=== PATIENT | female | born 1985 | race Caucasian/White ===

== ENCOUNTER → 2016-11-08 | Outpatient (CLI) | payer OTHER ==
[~2016-11-08] MED LIST: LIDOCAINE 1%, 20ML ONE; SODIUM BICARBONATE 4.2%, 5ML ONE
== END | disposition home or self-care (01) ==
LOC: RAD 13:01
PROVIDERS: ATTEND Internal Medicine
DX: R59.1 Generalized enlarged lymph nodes (principal); R51 Headache
CPT/HCPCS: 76536; 76942; 88173; J3490

== ENCOUNTER → 2017-02-06 | Outpatient (CLI) | payer OTHER | END | disposition home or self-care (01) | LOC: LAB 10:04 | PROVIDERS: ATTEND Internal Medicine | DX: Z13.220 Encounter for screening for lipoid disorders (principal); Z12.11 Encounter for screening for malignant neoplasm of colon; Z12.4 Encounter for screening for malignant neoplasm of cervix; Z12.39 Encounter for other screening for malignant neoplasm of breast; R61 Generalized hyperhidrosis; R59.1 Generalized enlarged lymph nodes | CPT/HCPCS: 36415; 83516 ==

== ENCOUNTER → 2017-04-16 | Outpatient (CLI) | payer OTHER | END | disposition home or self-care (01) | LOC: CFH 13:05 | PROVIDERS: ATTEND Internal Medicine Rheumatology | DX: M25.542 Pain in joints of left hand (principal); M25.541 Pain in joints of right hand | CPT/HCPCS: 77077 ==

== ENCOUNTER → 2017-05-08 | Outpatient (CLI) | payer OTHER | END | disposition home or self-care (01) | LOC: CFH 10:11 | PROVIDERS: ATTEND Orthopaedic Surgery | DX: M25.552 Pain in left hip (principal) | CPT/HCPCS: 73523 ==

== ENCOUNTER → 2017-05-14 | Outpatient (CLI) | payer OTHER ==
[~2017-05-14] MED LIST changes: +OMNIPAQUE 300 MG/ML, 10ML VIAL ONE; +ROPivacaine/PF 0.2%, 10 ML ONE; -SODIUM BICARBONATE 4.2%, 5ML ONE
== END | disposition home or self-care (01) ==
LOC: RAD 13:50
PROVIDERS: ATTEND Orthopaedic Surgery
DX: M25.552 Pain in left hip (principal)
CPT/HCPCS: 73525; 73722; J2795; J3490; Q9967

== ENCOUNTER → 2017-05-17 | Outpatient (CLI) | payer OTHER | LOC: LAB 07:38 | PROVIDERS: ATTEND Allergy & Immunology Allergy | DX: T78.2XXA Anaphylactic shock, unspecified, initial encounter (principal) | CPT/HCPCS: 36415; 83520 ==

== ENCOUNTER → 2017-11-11 | Outpatient (CLI) | payer OTHER | END | disposition home or self-care (01) | LOC: CFH 13:32 | PROVIDERS: ATTEND Obstetrics & Gynecology Maternal & Fetal Medicine | DX: Z11.3 Encounter for screening for infections with a predominantly sexual mode of transmission (principal); Z20.2 Contact with and (suspected) exposure to infections with a predominantly sexual mode of transmission | CPT/HCPCS: 36415; 86694; 86695; 86696 ==

== ENCOUNTER → 2018-01-08 | Outpatient (CLI) | payer BC | LOC: CARD 09:18 | PROVIDERS: ATTEND Nurse Practitioner Primary Care | DX: Z13.6 Encounter for screening for cardiovascular disorders (principal); R59.1 Generalized enlarged lymph nodes; R06.00 Dyspnea, unspecified | CPT/HCPCS: 93017 ==

== ENCOUNTER → 2018-08-14 | Outpatient (CLI) | payer BC ==
[~2018-08-14] MED LIST changes: +DOXY100T PO; +FISH OIL PO; -LIDOCAINE 1%, 20ML ONE; +MULT-516 PO; -OMNIPAQUE 300 MG/ML, 10ML VIAL ONE; -ROPivacaine/PF 0.2%, 10 ML ONE
== END | disposition home or self-care (01) ==
LOC: STAR 10:46
PROVIDERS: ATTEND Orthopaedic Surgery
DX: Z02.9 Encounter for administrative examinations, unspecified (principal)

== ENCOUNTER 2018-08-20 05:16 | Day surgery (SDC) | payer BC ==
[2018-08-14 11:25] VITALS: BP 121/83
[~2018-08-20] VITALS: Ht 162.6 cm; Wt 60.3 kg
[2018-08-20] MEDS ORDERED: LACTATED RINGERS 1,000 ML IV SCH (06:03)
[2018-08-20 06:04] VITALS: BP 121/83
[2018-08-20 06:35] LABS: HCG UR SG 1.009 (1.003-1.030)
[2018-08-20] MEDS ORDERED: MIDAZOLAM 1 MG/ML, 2ML ONE (06:46)
[2018-08-20] MEDS ORDERED: DEXAMETHASONE 4 MG/ML, 1ML ONE (06:46)
[2018-08-20] MEDS ORDERED: FENTANYL PF 250 MCG/5ML ONE (06:46)
[2018-08-20] MEDS ORDERED: ONDANSETRON 2MG/ML, 2ML ONE (06:46)
[2018-08-20] MEDS ORDERED: EPINEPHRINE TOPICAL SOLN 1 MG/ML, 30ML ONE (06:47)
[2018-08-20] MEDS ORDERED: PROPOFOL 10 MG/ML, 20ML ONE (06:51)
[2018-08-20] MEDS ORDERED: CEFAZOLIN 1,000 MG ONE (07:04)
[2018-08-20] MEDS ORDERED: GLYCOPYRROLATE 0.2MG/1ML, 5ML ONE (07:04)
[2018-08-20] MEDS ORDERED: SUCCINYLCHOLINE 20 MG/ML, 10ML ONE (07:04)
[2018-08-20] MEDS ORDERED: NEOSTIGMINE 1 MG/ML, 10ML ONE (07:04)
[2018-08-20] MEDS ORDERED: ROCURONIUM 10 MG/ML,10ML ONE (07:04)
[2018-08-20] MEDS ORDERED: KETOROLAC 30 MG/1 ML ONE (07:04)
[2018-08-20] MEDS ORDERED: ROPIvacaine/PF 0.5%, 30 ML ONE ×2 (07:30→08:06)
[2018-08-20] MEDS ORDERED: hydrALAzine 20 MG/ML, 1ML IV PRN (08:30)
[2018-08-20] MEDS ORDERED: ACETAMINOPHEN 325 MG TABLET PO PRN (08:30)
[2018-08-20] MEDS ORDERED: ALBUTEROL SULFATE 2.5 MG/3 ML NPPB PRN (08:30)
[2018-08-20] MEDS ORDERED: MORPHINE SULFATE 4 MG/ML, 1ML IVPush PRN (08:30)
[2018-08-20] MEDS ORDERED: LABETALOL 5MG/ML, 20ML IV PRN (08:30)
[2018-08-20] MEDS ORDERED: ONDANSETRON 2MG/ML, 2ML IV PRN (08:30)
[2018-08-20] MEDS ORDERED: HYDROmorphone 2 MG/ML, 1ML IVPush PRN (08:30)
[2018-08-20] MEDS ORDERED: PROMETHAZINE 25 MG/ML, 1ML IV PRN (08:30)
[2018-08-20] MEDS ORDERED: ONDANSETRON ODT 8 MG PO PRN (08:30)
[2018-08-20] MEDS ORDERED: DIAZEPAM 5 MG/ML, 2ML IVPush PRN (08:30)
[2018-08-20] MEDS ORDERED: MIDAZOLAM 1 MG/ML, 2ML IV PRN (08:30)
[2018-08-20] MEDS ORDERED: EPHEDRINE 50 MG/ML, 1ML IVPush PRN (08:30)
[2018-08-20] MEDS ORDERED: MEPERIDINE/PF 25MG/0.5ML IVPush PRN (08:30)
[2018-08-20] MEDS ORDERED: PROMETHAZINE 12.5 MG SUPP PR PRN (08:30)
[2018-08-20] MEDS ORDERED: OXYcodone 5 MG/5 ML ORAL.SOL UDC ONE (08:53)
[2018-08-20] MEDS ORDERED: FENTANYL PF 100 MCG/2ML ONE (08:54)
[2018-08-20] MEDS ORDERED: ACETAMINOPHEN 650 MG/20.3 ML UDC ONE (08:54)
[2018-08-20] MEDS: FENTANYL PF 100 MCG/2ML IV PRN ×3 (08:56→09:31)
[2018-08-20] MEDS: OXYcodone 5 MG/5 ML ORAL.SOL UDC PO PRN ×2 (09:00→11:02)
== END 2018-08-20 11:40 | disposition home or self-care (01) ==
LOC: OUT 05:16
PROVIDERS: ATTEND Orthopaedic Surgery
DX: S73.192A Other sprain of left hip, initial encounter (principal); M21.852 Other specified acquired deformities of left thigh; M94.8X5 Other specified disorders of cartilage, thigh; M65.852 Other synovitis and tenosynovitis, left thigh; X58.XXXA Exposure to other specified factors, initial encounter; Y93.89 Activity, other specified; Y92.89 Other specified places as the place of occurrence of the external cause; Y99.8 Other external cause status; Z88.5 Allergy status to narcotic agent
CPT/HCPCS: 29914; 29916; 73501; 76000; 81025; C1713; J0330; J0690; J1100; J1885; J2250; J2405; J2704; J2710; J2795; J3010; J3490; J7120

== ENCOUNTER → 2019-01-16 | Outpatient (CLI) | payer BC | END | disposition home or self-care (01) | LOC: CFH 12:46 | PROVIDERS: ATTEND Obstetrics & Gynecology Maternal & Fetal Medicine | DX: N39.3 Stress incontinence (female) (male) (principal); M62.81 Muscle weakness (generalized); Z88.5 Allergy status to narcotic agent ==

== ENCOUNTER 2019-10-22 11:51 | Emergency (ER) | payer BC, OTHER ==
--- NOTE | 2019-10-22 11:59 | NUR ---
ELECTRICAL MANUFACTURING TECHNICIAN: EKG DONE IN TRIAGE.
[2019-10-22 12:28] LABS: BASOPHILS # (AUTO) 0.02 x10^3/uL (0-0.1); BASOPHILS % (AUTO) 0 % (0-1); EOSINOPHILS # (AUTO) 0.14 x10^3/uL (0-0.4); EOSINOPHILS % (AUTO) 2 % (1-7); LYMPHOCYTES # (AUTO) 1.23 x10^3/uL (1-3.4); LYMPHOCYTES % (AUTO) 19 % (22-44); MD NO; MEAN CORPUSCULAR HEMOGLOBIN 33.7 pg (27.0-34.8); MEAN CORPUSCULAR HGB CONC 34.3 g/dL (32.4-35.8); MEAN CORPUSCULAR VOLUME 98.3 fL (80-100); MEAN PLATELET VOLUME 9.6 fL (7.4-10.4); MONOCYTES # (AUTO) 0.47 x10^3/uL (0.2-0.8); MONOCYTES % (AUTO) 7 % (2-9); NEUTROPHILS # (AUTO) 4.56 x10^3/uL (1.8-6.8); NEUTROPHILS % (AUTO) 71 % (42-75); PLATELET COUNT 183 x10^3/uL (130-400); RED BLOOD COUNT 4.26 x10^6/uL (3.82-5.3); RED CELL DISTRIBUTION WIDTH 12.2 % (9.6-15.2)
[2019-10-22 12:39] LABS: ALANINE AMINOTRANSFERASE 57 U/L (12-78); ANION GAP 7 mmol/L (5-15); CALCIUM 8.8 mg/dL (8.5-10.1); CHLORIDE 106 mmol/L (98-107); CREATININE 0.74 mg/dL (0.55-1.02)
--- NOTE | 2019-10-22 12:40 | NUR ---
THIS IS A 34 YO F W/ C/O CP LOCATED IN THE STERNUM AND MILD SOB FOR A FEW DAYS. PT REPORTS HR HAS BEEN UP TO 104. HAS HAD STRESS TEST IN THE PAST WHICH SHOWED PVCS. VS STABLE. PT CONVERSING IN FULL SENTENCES W/O DIFFICULTY. PT RESTING ON [employer] W/ CALL LIGHT IN REACH AND FAMILY AT BEDSIDE. CONNECTED TO ALL MONITORING. AWAITING RESULTS.
[2019-10-22 12:44] LABS: ALKALINE PHOSPHATASE 46 U/L (45-117); BILIRUBIN,TOTAL 0.4 mg/dL (0.2-1.0); TOTAL PROTEIN 7.4 g/dL (6.4-8.2); TROPONIN I < 0.015 ng/mL (0.000-0.045)
--- NOTE | 2019-10-22 12:56 | NUR ---
ALL TESTS RESULTED. AT BEDSIDE.
--- NOTE | 2019-10-22 13:08 | NUR ---
ORTHOSTATIC VS OBTAINED AND GIVEN TO .
--- NOTE | 2019-10-22 13:17 | NUR ---
TASK RN: MD AT BEDSIDE FOR REASSESSMENT, PIV ESTABLISHED BY THIS RN AND IVF INFUSING PER MD ORDER.
[2019-10-22] MEDS ORDERED: SODIUM CHLORIDE FLUSH 10ML SYR IVF ONE (13:30)
[2019-10-22] MEDS ORDERED: SODIUM CHLORIDE 0.9% 1,000ML IVBOLUS ONE (13:30)
--- NOTE | 2019-10-22 14:05 | NUR ---
PT RESTING ON GURNEY W/ FAMILY AT BEDSIDE. VS STABLE. IVF COMPLETE, AWAITING RECHECK.
--- NOTE | 2019-10-22 14:33 | NUR ---
AFTER SPEAKING W/ PT REPORTS TO THIS RN THAT SHE WOULD LIKE TO KNOW THAT THE BABY IS OKAY. STATES SHE WOULD LIKE AN US OR LAB TEST. THIS WAS COMMUNICATED TO DR. MANJARREZ AND US ORDERED. PT UPDATED.
--- NOTE | 2019-10-22 14:47 | NUR ---
PT TO US.
--- NOTE | 2019-10-22 15:16 | NUR ---
PT BACK FROM US.
[2019-10-22 16:06] VITALS: BP 101/66
--- NOTE | 2019-10-22 16:23 | NUR ---
Patient given discharge instructions and they have confirmed that they understand the instructions. Patient ambulatory with steady gait.
== END 2019-10-22 16:24 | disposition home or self-care (01) ==
LOC: ED 15:58
DX: O26.891 Other specified pregnancy related conditions, first trimester (principal); R07.2 Precordial pain; R00.2 Palpitations; R42 Dizziness and giddiness; Z3A.01 Less than 8 weeks gestation of pregnancy
CPT/HCPCS: 36415; 71046; 76801; 80053; 84443; 84484; 84702; 85025; 93005; 96360; 99285; J7030

== ENCOUNTER 2020-04-03 08:05 | Outpatient (CLI) | payer OTHER ==
[~2020-04-03] VITALS: Ht 162.6 cm; Wt 68.2 kg
[2020-04-03 08:26] VITALS: BP 107/63
== END 2020-04-03 08:58 | disposition home or self-care (01) ==
LOC: LDOP 08:05
PROVIDERS: ATTEND Obstetrics & Gynecology
DX: Z34.82 Encounter for supervision of other normal pregnancy, second trimester (principal); Z3A.29 29 weeks gestation of pregnancy
CPT/HCPCS: 59025

== ENCOUNTER 2020-05-31 00:16 | Inpatient (IN) | payer OTHER ==
[~2020-05-31] VITALS: Ht 160 cm; Wt 71.3 kg
[2020-05-31] MEDS ORDERED: OXYTOCIN 30U/ 0.9% NaCL 500ML 500 ML IV PRN (09:48)
[2020-05-31] MEDS ORDERED: OXYTOCIN 30U/ 0.9% NaCL 500ML 500 ML IV ONE (09:48)
[2020-05-31 10:00] VITALS: BP 108/67
[2020-05-31] MEDS ORDERED: TERBUTALINE 1 MG/ML, 1ML SQ PRN (10:00)
[2020-05-31] MEDS ORDERED: FENTANYL PF 100 MCG/2ML IV PRN (10:00)
[2020-05-31] MEDS: LACTATED RINGERS 1,000 ML IV SCH ×3 (10:00→20:20)
[2020-05-31] MEDS ORDERED: ONDANSETRON 2MG/ML, 2ML IVPush PRN (10:00)
[2020-05-31] MEDS ORDERED: TERBUTALINE 1 MG/ML, 1ML IVPush PRN (10:00)
[2020-05-31] MEDS ORDERED: FENTANYL PF 100 MCG/2ML IVPush PRN (10:00)
[2020-05-31] MEDS ORDERED: MISOPROSTOL 25 MCG TABLET VG PRN (10:00)
[2020-05-31] MEDS ORDERED: CALCIUM CARBONATE 500 MG TAB.CHEW PO PRN (10:00)
[2020-05-31 10:41] LABS: BASOPHILS % (AUTO) 0 % (0-1); EOSINOPHILS % (AUTO) 1 % (1-7); LYMPHOCYTES % (AUTO) 15 % (22-44); MEAN CORPUSCULAR HEMOGLOBIN 32.2 pg (27.0-34.8); MEAN CORPUSCULAR HGB CONC 33.7 g/dL (32.4-35.8); MEAN PLATELET VOLUME 8.8 fL (7.4-10.4); MONOCYTES % (AUTO) 6 % (2-9); NEUTROPHILS % (AUTO) 78 % (42-75); PLATELET COUNT 189 x10^3/uL (130-400); RED BLOOD COUNT 4.27 x10^6/uL (3.82-5.3); RED CELL DISTRIBUTION WIDTH 12.6 % (9.6-15.2)
[2020-05-31] MEDS ORDERED: MISOPROSTOL 25 MCG TABLET ONE (10:44)
[2020-05-31 10:50] LABS: MD NO
[2020-05-31] MEDS ORDERED: OXYTOCIN 30U/ 0.9% NaCL 500ML 500 ML ONE (13:01)
[2020-05-31] MEDS ORDERED: NEWBORN KIT ONE (13:01)
[2020-05-31] MEDS: D5%-LACTATED RINGERS 1,000 ML IV SCH (17:48)
[2020-05-31] MEDS ORDERED: FENTANYL/BUPIV./NS/PF 250 ML EPIDCONT ONE (20:02)
[2020-05-31] MEDS ORDERED: FENTANYL/BUPIV./NS/PF 250 ML EPIDCONT SCH (20:33)
[2020-05-31] MEDS ORDERED: LACTATED RINGERS 1,000 ML IV SCH (20:33)
[2020-05-31] MEDS ORDERED: LACTATED RINGERS 1,000 ML IVBOLUS PRN (21:00)
[2020-05-31] MEDS ORDERED: EPHEDRINE 50 MG/ML, 1ML IVPush PRN (21:00)
[2020-05-31] MEDS ORDERED: NALOXONE 0.4 MG/ML, 1ML IVPush PRN (21:00)
[2020-06-01] MEDS: D5%-LACTATED RINGERS 1,000 ML IV SCH ×2 (00:28→01:48)
[2020-06-01] MEDS ORDERED: MISOPROSTOL 200 MCG TABLET ONE (03:48)
[2020-06-01] MEDS ORDERED: OXYTOCIN 30U/ 0.9% NaCL 500ML 500 ML ONE (03:48)
[2020-06-01] MEDS ORDERED: LIDOCAINE 1%, 20ML ONE (03:48)
[2020-06-01] MEDS ORDERED: METHYLERGONOVINE 0.2 MG/ML IM PRN (06:00)
[2020-06-01] MEDS ORDERED: OXYTOCIN 10 UNITS/ML, 1ML IM PRN (06:00)
[2020-06-01] MEDS ORDERED: ONDANSETRON 2MG/ML, 2ML IV PRN (06:00)
[2020-06-01] MEDS ORDERED: OXYcodone IR 5MG TABLET PO PRN (06:00)
[2020-06-01] MEDS ORDERED: SIMETHICONE 80 MG CHEW TAB PO PRN (06:00)
[2020-06-01] MEDS ORDERED: MAGNESIUM HYDROXIDE 8%, 30ML UDC PO PRN (06:00)
[2020-06-01] MEDS ORDERED: DOCUSATE 100 MG CAPSULE PO PRN (06:00)
[2020-06-01] MEDS ORDERED: TRANEXAMIC ACID 100 MG/ML, 10ML IV ONE (06:00)
[2020-06-01] MEDS ORDERED: OXYcodone/APAP 5/325MG TABLET PO PRN (06:00)
[2020-06-01] MEDS ORDERED: OXYTOCIN 30U/ 0.9% NaCL 500ML 500 ML IV SCH (06:00)
[2020-06-01] MEDS ORDERED: ACETAMINOPHEN 325 MG TABLET PO PRN (06:00)
[2020-06-01] MEDS: OXYTOCIN 30U/ 0.9% NaCL 500ML 500 ML IV SCH ×2 (06:03→16:00)
[2020-06-01 08:35] VITALS: BP 99/67
[2020-06-01] MEDS ORDERED: PRENATAL VIT/IRON/FA 1 EACH TABLET PO SCH (09:00)
[2020-06-01] MEDS ORDERED: FLU VACC QS2020-21(6MOS UP)/PF 60MCG/0.5 ML SYR IM ONE (11:00)
[2020-06-01 13:07] LABS: BASOPHILS % (AUTO) 0 % (0-1); EOSINOPHILS % (AUTO) 1 % (1-7); LYMPHOCYTES % (AUTO) 9 % (22-44); MEAN CORPUSCULAR HEMOGLOBIN 32.1 pg (27.0-34.8); MEAN CORPUSCULAR HGB CONC 33.1 g/dL (32.4-35.8); MEAN PLATELET VOLUME 8.9 fL (7.4-10.4); MONOCYTES % (AUTO) 6 % (2-9); NEUTROPHILS % (AUTO) 83 % (42-75); PLATELET COUNT 174 x10^3/uL (130-400); RED BLOOD COUNT 4.07 x10^6/uL (3.82-5.3); RED CELL DISTRIBUTION WIDTH 12.9 % (9.6-15.2)
[2020-06-01 13:54] LABS: MD SCAN
[2020-06-01 16:00] VITALS: BP 103/70
[2020-06-01 20:00] VITALS: BP 98/62
[2020-06-01] MEDS: IBUPROFEN 800 MG TABLET PO PRN (22:22)
[2020-06-02 00:10] VITALS: BP 109/74
[2020-06-02] MEDS: IBUPROFEN 800 MG TABLET PO PRN (08:01)
[2020-06-02 08:33] VITALS: BP 112/75
[2020-06-02] MEDS ORDERED: OXYC-302 PO (08:54)
[2020-06-02] MEDS ORDERED: IBUP-1223 PO (08:54)
== END 2020-06-02 11:41 | disposition home or self-care (01) | DRG 807 ==
LOC: LDIP 09:18 → 2NW 06-01 07:10
PROVIDERS: ADMIT Obstetrics & Gynecology; ATTEND Obstetrics & Gynecology
PROC: 10E0XZZ Delivery of Products of Conception, External Approach (ICD-10-PCS; principal; 2020-06-01)
PROC: 10H07YZ Insertion of Other Device into Products of Conception, Via Natural or Artificial Opening (ICD-10-PCS; 2020-06-01)
PROC: 3E0R3BZ Introduction of Anesthetic Agent into Spinal Canal, Percutaneous Approach (ICD-10-PCS; 2020-06-01)
PROC: 00HU33Z Insertion of Infusion Device into Spinal Canal, Percutaneous Approach (ICD-10-PCS; 2020-06-01)
PROC: 0W8NXZZ Division of Female Perineum, External Approach (ICD-10-PCS; 2020-06-01)
PROC: 3E0234Z Introduction of Serum, Toxoid and Vaccine into Muscle, Percutaneous Approach (ICD-10-PCS; 2020-06-01)
DX: O80 Encounter for full-term uncomplicated delivery (principal); Z37.0 Single live birth; Z20.828 Contact with and (suspected) exposure to other viral communicable diseases; Z3A.39 39 weeks gestation of pregnancy; Z23 Encounter for immunization
CPT/HCPCS: 36415; J7121; 85025; 86592; 86850; 86900; 87635; 90686; G0378; J2590; J3010; J7120